=== PATIENT | male | born 1970 | race Caucasian/White ===

== ENCOUNTER 2020-08-22 12:24 | Emergency (ER) | payer OTHER, SELFPAY ==
[2020-08-22 12:45] VITALS: BP 108/68; PULSE 79; RESP 18; TEMP 36.6; O2SAT 96; BMI 34.1
--- NOTE | 2020-08-22 14:38 | CT_ITS ---
EXAMINATION: CT HEAD WITHOUT CONTRAST CLINICAL INFORMATION: Fall, secondary trauma. On warfarin. COMPARISON: None TECHNIQUE: Contiguous axial imaging was performed from the skull base to vertex without intravenous administration of contrast. Additional 2-D coronal and sagittal reformatted images are generated on the CT workstation and uploaded to PACS. Some images repeated due to motion on initial set. DOSE LOWERING TECHNIQUES: This CT examination was performed using dose optimization techniques as appropriate, variously including the following: *Automated exposure control *Adjustment of mA and/or kV according to patient size (this includes techniques or standardized protocols for targeted exams where dose is matched to indication/reason for exam; i.e. extremities or head) *Use of iterative reconstruction technique DLP: 2508 mGy-cm FINDINGS: There is some motion during the exam as well as streak artifact from head tilt. There are bulky bilateral basal ganglia calcifications and coarse calcifications in the bilateral cerebella nuclei. Fine calcifications are also present in the bilateral periventricular white matter. Findings are most likely related to nonspecific chronic metabolic disease. There is no subarachnoid, extra-axial, parenchymal, or intraventricular hemorrhage. No mass effect or edema or midline shift. The ventricles are normal in size. There is no hydrocephalus. The gonzalez-white matter differentiation appears symmetric. There is no visible acute territorial infarct or mass lesion. The calvarium appears intact. There is no pneumocephalus or orbital emphysema. There are no air-fluid levels in the sinuses. There is some mucosal thickening noted in the maxillary sinuses and opacification left mastoid air cells and left middle ear. No bony destructive process. CT/CT head/brain wo con IMPRESSION: 1. Bilateral coarse calcifications basal ganglia, cerebellar nuclei, and periventricular white matter likely related to nonspecific chronic metabolic disease. 2. No intracranial hemorrhage, hydrocephalus, edema, or mass effect. 3. Opacification left middle ear and left mastoid. No bony destructive process.
--- NOTE | 2020-08-22 14:40 | XR_ITS ---
EXAMINATION: XR CHEST CLINICAL INFORMATION: Reason for Exam fluid in lungs on last cxr 2 weeks ago, pt non verbal COMPARISON: Chest radiographs 07/23/2016, 03/11/2012. TECHNIQUE: Portable upright AP view of the chest was obtained. FINDINGS: Heart is upper limits of normal size. The vascularity is within normal. There is coarsening of the bronchiolar markings lower zones with possible airspace opacity right infrahilar region. The remainder of the lungs are clear. No effusion. XR/XR chest 1V IMPRESSION: Coarsening bronchiolar markings lower zones with possible airspace opacity right infrahilar region. Remainder of lungs are clear. No effusion.
--- NOTE | 2020-08-22 14:48 | ED_ITS ---
HPI - Fall General Chief Complaint: Fall Stated Complaint: FALL Time Seen by Provider: 08/22/20 13:49 Source: family and hand quilter ( sister speaks Swedish) Mode of arrival: wheelchair Limitations: other (ID) History of Present Illness HPI Narrative: patient is a 50-year-old male with a past medical history of Megan n Syndrome, history of DVT on warfarin and hypothyroid presents with his sister, Tabatha Rehman, who is his concrete wall grinder operator. Tabatha states that for the last few days he has been trying to hurt himself intentionally, throwing himself in different directions, towards objects, out of bed, multiple times. He states he did hit his head on a radiator. she states he typically does not act out like this when he has an infection and this is very unusual for him. she states he does not have a cough, shortness of breath, fevers, nausea vomiting diarrhea and has been eating his normal amounts. patient is apparently on some antipsychotic medication but the sister is unaware what it is and states that he is out of the medication. Related Data Home Medications Medication Instructions Recorded Confirmed levothyroxine 1 tab PO DAILY 08/22/20 08/22/20 warfarin 1 tab PO DAILY 08/22/20 08/22/20 Previous Rx's Medication Instructions Recorded nitrofurantoin monohyd/m-cryst 100 mg PO Q12H 5 Days #10 cap 08/22/20 [Macrobid] phenazopyridine [Pyridium] 200 mg PO TID #10 tab 08/22/20 Allergies Allergy/AdvReac Type Severity Reaction Status Date / Time No Known Allergies Allergy Unverified 07/18/20 16:25 Review of Systems Review of Systems: Yes all other systems are reviewed and are negative [facility] Past Medical History Attestation statement: The following information was validated with the patient. Source: old records reviewed and obtained from family Medical History DVT (deep venous thrombosis) Social History Social History Advance Directives: No Advance Directives Information Provided: No Physical Exam Vital Signs: Vital Signs: Vital Signs Temp Pulse Resp BP Pulse Ox 08/22/20 15:07 99.0 F 63 18 115/58 L 95 08/22/20 12:45 97.9 F 79 18 108/68 96 Body Mass Index 34.1 Const: General: cooperative and no acute distress Nutritional Appearance: obese Orientation/consciousness: Other orientation findings (baseline Down Syndrome per sister) Limitations: physical limitations Eyes: Eyelids: Yes eyelid abnormality (upward slanting/Downs) Conjunctivae: conjunctival abnormal (glaucoma left eye) Pupils: Equal, round and reactive pupils present Neck: Neck: Yes normal visual inspection, Yes full ROM and Yes other (no TTP of cervical spine) Chest: Chest palpation & inspection: normal palpation of entire chest wall Resp: Effort & Inspection: normal respiratory effort Auscultation: clear to auscultation bilaterally Cardio: Rate: regular rate Rhythm: regular rhythm Heart sounds: S1 normal heart sound present and S2 normal heart sound present GI: Inspection: Yes obesity and Yes other ( small, healing wounds on left lateral abdomen, right lateral sm ecchymosis) Palpation (GI): Soft to palpation, nontender and No hepatosplenomegaly present Auscultation: normal bowel sounds Skin: Trauma: other ( patient has multiple small healing wounds over bilateral lower extremities) Neuro: Cranial nerves: Yes Equal, round and reactive pupils present Course Course Course Narrative: patient is a 50-year-old male with a past medical history of Down syndrome, history of DVT on warfarin and a hypothyroid. He is here with his sister who states she is his concrete wall grinder operator and he has been acting out recently and throwing himself off the bed and into objects. she states that he had a chest x-ray at [facility] 2 weeks ago which showed fluid on the lungs . She says he threw himself into a radiator last night. We will do UA, EKG, labs, head CT and a chest x-ray Reevaluation(s) Reevaluation #1: UA +, sent Bactrim to pharmacy Time: 15:34 Reevaluation #2: CXR shows small PNA, spoke with patient's sister with hand quilter Time: 15:34 MDM - Fall Lab Data Attestation: I reviewed the patient's lab results. Lab results narrative: urine pos nitrite and WBC's Result diagrams: 08/22/20 15:19 08/22/20 15:19 Labs: Lab Results 10/22/20 10/22/20 10/22/20 Range/Units 15:19 15:19 15:19 WBC 4.7 L (4.8-10.8) X10*3/uL RBC 3.60 L (4.60-5.80) X10*6/uL Hgb 12.3 L (14.0-18.0) g/dl Hct 38.5 L (42-52) % MCV 106.9 H (80-98) fL MCH 34.2 H (27.0-33.0) pg MCHC 31.9 (31.0-36.0) g/dl RDW 13.8 (11.0-16.0) % Plt Count 237 (160-400) X10*3/uL MPV 9.7 (9.4-12.4) fL Immature Gran % (Auto) 0.6 H (0.0-0.4) % Neut % (Auto) 66.7 (45-73) % Lymph % (Auto) 21.5 (20-40) % [place] % (Auto) 7.3 (2-11) % Eos % (Auto) 3.0 (0-4) % Baso % (Auto) 0.9 (0-2) % Lymph # (Auto) 1.0 L (1.2-4.9) X10*3/uL [place] # (Auto) 0.3 (0.1-1.2) X10*3/uL Eos # (Auto) 0.1 (0.0-0.4) X10*3/uL Baso # (Auto) 0.0 (0.0-0.2) X10*3/uL Abs Immat Gran (auto) 0.03 (0.00-0.03) X10*3/uL Absolute Neuts (auto) 3.1 (2.0-8.3) X10*3/uL Absolute Nucleated RBC 0.000 (0.0-0.012) X10*3/uL Nucleated RBC % (auto) 0.0 (0.0-0.2) /100WBC PT 21.0 H (10.8-13.0) SEC INR 1.8 H (0.9-1.1) APTT 35.4 (24.1-38.0) SEC D-Dimer 389 NG/ML Sodium 144 (135-145) mmol/L Potassium 4.1 (3.3-5.1) mmol/l Chloride 109 H (96-108) mmol/L Carbon Dioxide 28 (22-29) mmol/L Anion Gap 11 L (12-20) BUN 14 (9-16) mg/dL Creatinine 0.89 (0.5-1.4) mg/dL Estim Creat Clear Calc 105.3 Estimated GFR > 60 Random Glucose 98 (60-115) mg/dL Calcium 8.3 L (8.4-10.2) mg/dL Total Bilirubin 0.4 (0.0-1.0) mg/dL AST 29 (5-37) U/L ALT 26 (0-40) U/L Alkaline Phosphatase 52 (39-117) U/L Total Protein 6.5 (6.5-8.0) g/dL Albumin 3.5 (3.5-5.0) g/dL 08/22/20 Range/Units 15:19 WBC (4.8-10.8) X10*3/uL RBC (4.60-5.80) X10*6/uL Hgb (14.0-18.0) g/dl Hct (42-52) % MCV (80-98) fL MCH (27.0-33.0) pg MCHC (31.0-36.0) g/dl RDW (11.0-16.0) % Plt Count (160-400) X10*3/uL MPV (9.4-12.4) fL Immature Gran % (Auto) (0.0-0.4) % Neut % (Auto) (45-73) % Lymph % (Auto) (20-40) % [place] % (Auto) (2-11) % Eos % (Auto) (0-4) % Baso % (Auto) (0-2) % Lymph # (Auto) (1.2-4.9) X10*3/uL [place] # (Auto) (0.1-1.2) X10*3/uL Eos # (Auto) (0.0-0.4) X10*3/uL Baso # (Auto) (0.0-0.2) X10*3/uL Abs Immat Gran (auto) (0.00-0.03) X10*3/uL Absolute Neuts (auto) (2.0-8.3) X10*3/uL Absolute Nucleated RBC (0.0-0.012) X10*3/uL Nucleated RBC % (auto) (0.0-0.2) /100WBC PT (10.8-13.0) SEC INR (0.9-1.1) APTT (24.1-38.0) SEC D-Dimer Cancelled NG/ML Sodium (135-145) mmol/L Potassium (3.3-5.1) mmol/l Chloride (96-108) mmol/L Carbon Dioxide (22-29) mmol/L Anion Gap (12-20) BUN (9-16) mg/dL Creatinine (0.5-1.4) mg/dL Estim Creat Clear Calc Estimated GFR Random Glucose (60-115) mg/dL Calcium (8.4-10.2) mg/dL Total Bilirubin (0.0-1.0) mg/dL AST (5-37) U/L ALT (0-40) U/L Alkaline Phosphatase (39-117) U/L Total Protein (6.5-8.0) g/dL Albumin (3.5-5.0) g/dL Imaging Data Chest x-ray: My impression: Reviewed with Dr. Cordon, as patient has no shortness of breath or upper respiratory symptoms, not a CAP. Radiologist's impression: Coarsening bronchiolar markings lower zones with possible airspace opacity right infrahilar region. Remainder of lungs are clear. No effusion. CT scan - head: Attestation: I personally reviewed and interpreted this imaging study as follows: My impression: reviewed with Dr Cordon as well, nothing acute and no infection Radiologist's impression: 1. Bilateral coarse calcifications basal gangli a, cerebellar nuclei, and periventricular white matter likely related to nonspecific chronic metabolic disease. 2. No intracranial hemorrhage, hydrocephalus, edema, or mass effect. 3. Opacification left middle ear and left mastoid. No bony destructive process. Discharge Plan Discharge Clinical Impression: Acute UTI (urinary tract infection) Patient Disposition: Home, Self-Care Instructions: Urinary Tract Infection in Men (ED) Prescriptions: New nitrofurantoin monohyd/m-cryst [Macrobid] 100 mg capsule 100 mg PO Q12H 5 Days Qty: 10 RF: 0 phenazopyridine [Pyridium] 100 mg tablet 200 mg PO TID Qty: 10 RF: 0 No Action levothyroxine 150 mcg tablet 1 tab PO DAILY RF: 0 warfarin 2 mg tablet 1 tab PO DAILY RF: 0
[2020-08-22 15:07] VITALS: BP 115/58; PULSE 63; RESP 18; TEMP 37.2; O2SAT 95
[2020-08-22 15:29] LABS: MANUAL DIFF FLAG NO
[2020-08-22 15:31] LABS: Basophils Percent Auto 0.9 % (0-2); Eosinophils Absolute Auto 0.1 X10*3/uL (0.0-0.4); Hematocrit 38.5 % (42-52); Hemoglobin 12.3 g/dl (14.0-18.0); Imm Gran Abs Auto 0.03 X10*3/uL (0.00-0.03); Imm Gran Pct Auto 0.6 % (0.0-0.4); Lymphocytes Percent Auto 21.5 % (20-40); Mean Corpuscular HGB Conc 31.9 g/dl (31.0-36.0); Mean Corpuscular Hemoglobin 34.2 pg (27.0-33.0); Mean Corpuscular Volume 106.9 fL (80-98); Mean Platelet Volume 9.7 fL (9.4-12.4); Monocytes Absolute Auto 0.3 X10*3/uL (0.1-1.2); Monocytes Percent Auto 7.3 % (2-11); Neutrophils Absolute Auto 3.1 X10*3/uL (2.0-8.3); Neutrophils Percent Auto 66.7 % (45-73); Platelet Count 237 X10*3/uL (160-400); Red Cell Distribution Width 13.8 % (11.0-16.0); White Blood Count 4.7 X10*3/uL (4.8-10.8)
[2020-08-22 15:41] LABS: INTERNATIONAL NORM RATIO 1.8 (0.9-1.1)
[2020-08-22 15:44] LABS: D Dimer 389 NG/ML; Partial Thromboplastin Time 35.4 SEC (24.1-38.0)
[2020-08-22 15:53] LABS: Alanine Aminotransferase 26 U/L (0-40); Albumin Level 3.5 g/dL (3.5-5.0); Alkaline Phosphatase 52 U/L (39-117); Anion Gap 11 (12-20); Aspartate Amino Transferase 29 U/L (5-37); Bilirubin Total 0.4 mg/dL (0.0-1.0); Blood Urea Nitrogen 14 mg/dL (9-16); Calcium 8.3 mg/dL (8.4-10.2); Carbon Dioxide 28 mmol/L (22-29); Chloride 109 mmol/L (96-108); Creatinine Clr Calc Pharmacy 105.3; Estimated Glomerular Filt Rate > 60; Glucose Random 98 mg/dL (60-115); Potassium 4.1 mmol/l (3.3-5.1); Sodium 144 mmol/L (135-145); Total Protein 6.5 g/dL (6.5-8.0)
[2020-08-22] MEDS: Phenazopyridine HCL 200 MG TABLET PO (16:15)
== END 2020-08-22 16:19 | disposition home or self-care (01) ==
PROVIDERS: Physician Assistant; Emergency Provider Emergency Medicine; PCP Internal Medicine
DX: S09.90XA Unspecified injury of head, initial encounter (principal); G44.309 Post-traumatic headache, unspecified, not intractable; N39.0 Urinary tract infection, site not specified; Q90.9 Down syndrome, unspecified; W05.0XXA Fall from non-moving wheelchair, initial encounter; Y93.9 Activity, unspecified; Y92.9 Unspecified place or not applicable; Z86.718 Personal history of other venous thrombosis and embolism; Z79.01 Long term (current) use of anticoagulants; Z79.899 Other long term (current) drug therapy
CPT/HCPCS: 36415; 70450; 71045; 80053; 85025; 85379; 85610; 85730; 99284

== ENCOUNTER 2020-08-29 11:18 | Emergency (ER) | payer OTHER, SELFPAY ==
[2020-08-29 11:22] VITALS: BP 122/82; PULSE 84; RESP 20; TEMP 37.3; O2SAT 95; BMI 34.7
--- NOTE | 2020-08-29 11:38 | PC.NURSE ---
pt here for increased aggressive behaviour at home, lives with sister. aggressive over past month, increased this week, sister seeks crisis treatment/behavioural stabilization here. seen here a few days ago. finished course of abx for uti yesterday, no curent urinary sxs. pt is non-verbal, non-ambulatory, able to stand and pivot with assistance. hx hypothyroidism self-harm , see triage. med rec completed. VS wnl. sister at bedside to advocate for pt.
[2020-08-29 12:00] VITALS: BP 107/60; PULSE 73; RESP 19; TEMP 36.8; O2SAT 94
--- NOTE | 2020-08-29 12:48 | ED_ITS ---
HPI - Psych General Chief Complaint: Psychiatric Symptoms Stated Complaint: psych eval Time Seen by Provider: 08/29/20 12:36 Source: family Mode of arrival: EMS Limitations: other ( down syndrome) History of Present Illness HPI Narrative: sister brings patient to the ED because he has been off his medications since the pandemic started and has been more aggressive, crying, hitting others, and hitting himself. Related Data Home Medications Medication Instructions Recorded Confirmed levothyroxine 1 tab PO DAILY 08/22/20 08/29/20 warfarin 2 tab PO DAILY 08/22/20 08/29/20 Banophen 25 mg PO BEDTIME PRN MDD 50 08/29/20 08/29/20 Allergies Allergy/AdvReac Type Severity Reaction Status Date / Time No Known Allergies Allergy Verified 08/29/20 11:28 Review of Systems Review of Systems: Review of systems obtained from sister. patient has Down syndrome. Constitutional: Constitutional: Reports as per HPI, Reports no additional constitutional complaints, Denies anorexia, Denies body ache(s), Denies chills and Denies daytime sleepiness Eyes: Eyes: Reports as per HPI and Reports no additional eye complaints ENT: Reports system reviewed and no additional complaints, except as documented and Reports as per HPI Cardiovascular: Cardiovascular: Reports as per HPI, Reports no additional cardiovascular complaints, Denies chest pain, Denies chest pain at rest, Denies chest pain with activity, Denies Epigastric Pain, Denies rapid heart rate, Denies dyspnea, Denies dyspnea on exertion, Denies orthopnea and Denies paroxysmal nocturnal dyspnea Respiratory: Respiratory: Reports as per HPI, Reports no additional respiratory complaints, Denies no additional respiratory complaints, Denies change in phlegm color, Denies chest congestion, Denies cough, Denies excessive phlegm production, Denies pain on inspiration, Denies pain with cough, Denies dyspnea and Denies dyspnea on exertion Gastrointestinal: Gastrointestinal: Reports as per HPI, Reports no additional gastrointestinal complaints, Denies abdominal pain, Denies belching, Denies melena, Denies bloating, Denies change in bowel habits, Denies tenesmus, Denies change in stool character, Denies constipation, Denies early satiety, Denies dyspepsia, Denies heartburn and Denies fecal incontinence Genitourinary: Genitourinary: Denies no additional male genitourinary comp laints, Denies as per HPI, Denies genital lesions, Denies dysuria, Denies flank pain, Denies nocturia, Denies painful ejaculations and Denies testicular mass Musculoskeletal: Musculoskeletal: Reports no additional musculoskeletal complaints and Reports as per HPI Neurologic: Reports system reviewed and no additional complaints, except as documented and Reports as per HPI Psychiatric: Psychiatric: Reports no additional psychiatric complaints, Reports as per HPI and Reports depression Comments: patient is more aggressive PMF Past Medical History Medical History DVT (deep venous thrombosis) Social History Social History Alcohol intake: never Smoking Status: Never smoker Smoked in Last 30 Days: No Use of substances other than those prescribed or required for medical reasons: No Advance Directives: No Advance Directives Information Provided: Yes Physical Exam Vital Signs: Vital Signs: Vital Signs Temp Pulse Resp BP Pulse Ox 08/29/20 15:37 98.9 F 75 17 102/56 L 98 08/29/20 12:00 98.3 F 73 19 107/60 94 08/29/20 11:22 99.2 F 84 20 122/82 95 Body Mass Index 34.7 Const: Other: Bruising only on the right biceps HENMT: Head: Yes normal to inspection and Yes No palpable skull fracture present Eyes: General: appearance normal, both eyes and all related structures Neck: Neck: Yes normal visual inspection and Yes full ROM Chest: Chest palpation & inspection: normal inspection of the chest, normal palpation of entire chest wall and no localized rib tenderness Resp: Effort & Inspection: normal respiratory effort and able to speak in complete sentences Cardio: Jugular venous distension: no JVD Heart sounds: S1 normal heart sound present and S2 normal heart sound present GI: Inspection: Yes normal to inspection Palpation (GI): Soft to palpation, not firm, nontender, no guarding and not rigid : General: No CVA tenderness and Yes no CVA tenderness Back/Spine/Pelvis: Back: no CVA tenderness, No CVA tenderness and No back tenderness Extrem: Other: Positive for right arm/bicep bruising. General: Yes normal to inspection and Yes full ROM Right upper extremity: normal to inspection Left upper extremity: normal to inspection Psych: Other: patient is at baseline mentally. Course Course Course Narrative: patient will be evaluated by [facility] leasing sales consultant. Reevaluation(s) Reevaluation #1: [facility] consulted spoke with sister to valarie flynn patient. [facility] consultant to recommend patient stay overnight so they can call his provider to determine what care he is receiving to see if he needs inpatient admission. presently [facility] consulted does not recommend patient go back home with sister. Patient will be re-evaluated tomorrow. Patient to have basic labs and UA ordered. Time: 16:46 Reevaluation #2: Case signed out to [employer] Nawaf. Will order PT/Ptt. Patient placed on one-to-one Time: 17:42 MDM - Psych MDM Narrative Medical decision making narrative: Down syndrome. Behavior issues. Restraints Face to Face Assessment: Face to Face Assessment: Current Situation: After assessment of the patient, a review of the pertinent medical record and a discussion with nursing staff, I feel the patient requires a restrain intervention. Reaction To: [] Medical Condition: [] Behavioral State: [] Continued Need: [] Lab Data Result diagrams: 08/29/20 16:42 08/29/20 16:42 Labs: Lab Results 08/29/20 08/29/20 08/29/20 Range/Units 16:27 16:27 16:42 WBC 5.2 (4.8-10.8) X10*3/uL RBC 3.29 L (4.60-5.80) X10*6/uL Hgb 11.3 L (14.0-18.0) g/dl Hct 36.3 L (42-52) % MCV 110.3 H (80-98) fL MCH 34.3 H (27.0-33.0) pg MCHC 31.1 (31.0-36.0) g/dl RDW 13.7 (11.0-16.0) % Plt Count 266 (160-400) X10*3/uL MPV 10.0 (9.4-12.4) fL Immature Gran % (Auto) 1.2 H (0.0-0.4) % Neut % (Auto) 54.9 (45-73) % Lymph % (Auto) 27.9 (20-40) % [place] % (Auto) 10.3 (2-11) % Eos % (Auto) 4.1 H (0-4) % Baso % (Auto) 1.6 (0-2) % Lymph # (Auto) 1.4 (1.2-4.9) X10*3/uL [place] # (Auto) 0.5 (0.1-1.2) X10*3/uL Eos # (Auto) 0.2 (0.0-0.4) X10*3/uL Baso # (Auto) 0.1 (0.0-0.2) X10*3/uL Abs Immat Gran (auto) 0.06 H (0.00-0.03) X10*3/uL Absolute Neuts (auto) 2.8 (2.0-8.3) X10*3/uL Absolute Nucleated RBC 0.000 (0.0-0.012) X10*3/uL Nucleated RBC % (auto) 0.0 (0.0-0.2) /100WBC Sodium (135-145) mmol/L Potassium (3.3-5.1) mmol/l Chloride (96-108) mmol/L Carbon Dioxide (22-29) mmol/L Anion Gap (12-20) BUN (9-16) mg/dL Creatinine (0.5-1.4) mg/dL Estim Creat Clear Calc Estimated GFR Random Glucose (60-115) mg/dL Calcium (8.4-10.2) mg/dL Total Bilirubin (0.0-1.0) mg/dL Direct Bilirubin (0.0-0.5) mg/dL AST (5-37) U/L ALT (0-40) U/L Alkaline Phosphatase (39-117) U/L Total Protein (6.5-8.0) g/dL Albumin (3.5-5.0) g/dL Urine Color YELLOW Urine Appearance CLEAR Urine pH 7.0 (5.0-8.0) Ur Specific [place] 1.020 (1.005-1.025) Urine Protein NEG (NEG-TRACE) MG/DL Urine Glucose (UA) NEG (NEG) MG/DL Urine Ketones NEG (NEG) MG/DL Urine Blood NEG (NEG) Urine Nitrite NEG (NEG) Ur Leukocyte Esterase NEG (NEG) Urine Opiates Screen Not Detected (Not Detect) Ur Barbiturates Screen Not Detected (Not Detect) Ur Phencyclidine Scrn Not Detected (Not Detect) Ur Amphetamines Screen Not Detected (Not Detect) U Benzodiazepines Scrn Not Detected (Not Detect) Urine Cocaine Screen Not Detected (Not Detect) U Marijuana (THC) Screen Not Detected (Not Detect) Ethyl Alcohol mg/dL 08/29/20 08/29/20 Range/Units 16:42 16:42 WBC (4.8-10.8) X10*3/uL RBC (4.60-5.80) X10*6/uL Hgb (14.0-18.0) g/dl Hct (42-52) % MCV (80-98) fL MCH (27.0-33.0) pg MCHC (31.0-36.0) g/dl RDW (11.0-16.0) % Plt Count (160-400) X10*3/uL MPV (9.4-12.4) fL Immature Gran % (Auto) (0.0-0.4) % Neut % (Auto) (45-73) % Lymph % (Auto) (20-40) % [place] % (Auto) (2-11) % Eos % (Auto) (0-4) % Baso % (Auto) (0-2) % Lymph # (Auto) (1.2-4.9) X10*3/uL [place] # (Auto) (0.1-1.2) X10*3/uL Eos # (Auto) (0.0-0.4) X10*3/uL Baso # (Auto) (0.0-0.2) X10*3/uL Abs Immat Gran (auto) (0.00-0.03) X10*3/uL Absolute Neuts (auto) (2.0-8.3) X10*3/uL Absolute Nucleated RBC (0.0-0.012) X10*3/uL Nucleated RBC % (auto) (0.0-0.2) /100WBC Sodium 143 (135-145) mmol/L Potassium 4.9 (3.3-5.1) mmol/l Chloride 107 (96-108) mmol/L Carbon Dioxide 31 H (22-29) mmol/L Anion Gap 10 L (12-20) BUN 19 H (9-16) mg/dL Creatinine 0.99 (0.5-1.4) mg/dL Estim Creat Clear Calc 83.0 Estimated GFR > 60 Random Glucose 97 (60-115) mg/dL Calcium 7.9 L (8.4-10.2) mg/dL Total Bilirubin 0.6 (0.0-1.0) mg/dL Direct Bilirubin 0.2 (0.0-0.5) mg/dL AST 18 (5-37) U/L ALT 22 (0-40) U/L Alkaline Phosphatase 52 (39-117) U/L Total Protein 6.0 L (6.5-8.0) g/dL Albumin 3.1 L (3.5-5.0) g/dL Urine Color Urine Appearance Urine pH (5.0-8.0) Ur Specific [place] (1.005-1.025) Urine Protein (NEG-TRACE) MG/DL Urine Glucose (UA) (NEG) MG/DL Urine Ketones (NEG) MG/DL Urine Blood (NEG) Urine Nitrite (NEG) Ur Leukocyte Esterase (NEG) Urine Opiates Screen (Not Detect) Ur Barbiturates Screen (Not Detect) Ur Phencyclidine Scrn (Not Detect) Ur Amphetamines Screen (Not Detect) U Benzodiazepines Scrn (Not Detect) Urine Cocaine Screen (Not Detect) U Marijuana (THC) Screen (Not Detect) Ethyl Alcohol < 10 mg/dL Discharge Plan Discharge Clinical Impression: Behavioral change Prescriptions: No Action levothyroxine 150 mcg tablet 1 tab PO DAILY RF: 0 warfarin 2 mg tablet 2 tab PO DAILY RF: 0 Banophen 25 mg 25 mg PO BEDTIME MDD 50 PRN (Reason: Sleep) RF: 0
[2020-08-29 15:37] VITALS: BP 102/56; PULSE 75; RESP 17; TEMP 37.2; O2SAT 98
[2020-08-29 16:47] LABS: MANUAL DIFF FLAG NO
[2020-08-29 16:50] LABS: Basophils Absolute Auto 0.1 X10*3/uL (0.0-0.2); Basophils Percent Auto 1.6 % (0-2); Hematocrit 36.3 % (42-52); Red Blood Count 3.29 X10*6/uL (4.60-5.80)
[2020-08-29 16:53] LABS: Glucose Urine UA NEG (NEG); Leukocyte Esterase Urine NEG (NEG); Nitrite Urine NEG (NEG); Urine Blood NEG (NEG); Urine Ketones NEG (NEG); Urine Protein NEG (NEG-TRACE)
[2020-08-29 16:54] LABS: Appearance Urine CLEAR; Color Urine YELLOW
[2020-08-29 16:58] LABS: Eosinophils Absolute Auto 0.2 X10*3/uL (0.0-0.4); Eosinophils Percent Auto 4.1 % (0-4); Hemoglobin 11.3 g/dl (14.0-18.0); Imm Gran Abs Auto 0.06 X10*3/uL (0.00-0.03); Imm Gran Pct Auto 1.2 % (0.0-0.4); Lymphocytes Absolute Auto 1.4 X10*3/uL (1.2-4.9); Lymphocytes Percent Auto 27.9 % (20-40); Mean Corpuscular HGB Conc 31.1 g/dl (31.0-36.0); Mean Corpuscular Hemoglobin 34.3 pg (27.0-33.0); Mean Corpuscular Volume 110.3 fL (80-98); Monocytes Absolute Auto 0.5 X10*3/uL (0.1-1.2); Monocytes Percent Auto 10.3 % (2-11); Neutrophils Absolute Auto 2.8 X10*3/uL (2.0-8.3); Neutrophils Percent Auto 54.9 % (45-73); Platelet Count 266 X10*3/uL (160-400); Red Cell Distribution Width 13.7 % (11.0-16.0); White Blood Count 5.2 X10*3/uL (4.8-10.8)
[2020-08-29 17:09] LABS: Ethanol < 10 mg/dL
[2020-08-29 17:14] LABS: Alanine Aminotransferase 22 U/L (0-40); Albumin Level 3.1 g/dL (3.5-5.0); Alkaline Phosphatase 52 U/L (39-117); Anion Gap 10 (12-20); Aspartate Amino Transferase 18 U/L (5-37); Bilirubin Direct 0.2 mg/dL (0.0-0.5); Bilirubin Total 0.6 mg/dL (0.0-1.0); Blood Urea Nitrogen 19 mg/dL (9-16); Calcium 7.9 mg/dL (8.4-10.2); Carbon Dioxide 31 mmol/L (22-29); Chloride 107 mmol/L (96-108); Estimated Glomerular Filt Rate > 60; Glucose Random 97 mg/dL (60-115); Potassium 4.9 mmol/l (3.3-5.1); Sodium 143 mmol/L (135-145)
[2020-08-29 17:23] LABS: Amphetamine Screen Urine Not Detected (Not Detect); Barbiturates, Urine Not Detected (Not Detect); Benzodiazepines Screen Urine Not Detected (Not Detect); Cannabinoid Screen Urine Not Detected (Not Detect); Cocaine Screen Urine Not Detected (Not Detect); Opiate Screen Urine Not Detected (Not Detect); Phencyclidine Screen Urine Not Detected (Not Detect)
--- NOTE | 2020-08-29 17:38 | PC.NURSE ---
mom had to leave home. patient placed on one to one.
[2020-08-29] MEDS: LORazepam 1 MG TABLET PO (19:16)
--- NOTE | 2020-08-29 19:41 | PC.NURSE ---
unable to draw labs due to patient's agitation
--- NOTE | 2020-08-29 20:49 | PC.NURSE ---
ASSUMED CARE OF PT FROM PREVIOUS NURSE. 1:1 REMAINS WITH PT.
--- NOTE | 2020-08-29 21:14 | PC.NURSE ---
patient has started to calm down. no further screaming at present
[2020-08-29] MEDS: Acetaminophen 325 MG TABLET 650 MG PO (22:40)
--- NOTE | 2020-08-29 22:50 | PC.NURSE ---
attempt to take labs unable. patient became agitated
[2020-08-30] VITALS (12 sets, daily range): BP systolic 90–136; BP diastolic 46–99; PULSE 66–119; RESP 14–22; TEMP 36.7; O2SAT 94–100
[2020-08-30] MEDS: diphenhydrAMINE HCL 25 MG TABLET PO (03:57)
[2020-08-30] MEDS: LORazepam 1 MG TABLET PO ×2 (03:57→17:28)
--- NOTE | 2020-08-30 04:07 | PC.NURSE ---
Patient in his bed, loud/screaming/agitated, Ativan 1 mg and Benadryl 25 mg administered with pudding as ordered, Will continue to monitor.
--- NOTE | 2020-08-30 07:27 | PC.NURSE ---
PT IS SLEEPING, REPORT RECEIVED FROM NIGHT STAFF CHART REFLECTS PLAN FOR N TO REASSESS PT TODAY PTS SISTER DOES NOT FEEL SAFE WITH PT RETURNING HOME
[2020-08-30] MEDS: Haloperidol Lactate 5 MG/ML VIAL IM (09:28)
--- NOTE | 2020-08-30 09:33 | PC.NURSE ---
pt awake and thrashing about the bed he is repetitive in his vocalization, screaming electric motor tester used and pt offers no insight to his needs at this time he was offered toileting, food( which was thrown on the floor) and reduced stimulation in room milli tuttle at the bedside to reassess and pt was medicated as charted for agitation sitter remains in place
--- NOTE | 2020-08-30 10:06 | PC.NURSE ---
PTS FAMILY AT THE BEDSIDE HE WAS ABLE TO DRINK WATER FOR THIS RN SISTER PRESENT AND PT TOOK A FEW BITES OF A BREAKFAST SANDWICH HIS DRESSING ON THE ABD WOUND WAS REPLACED AND HIS BRIEF WAS REMOVED AND HOSPITAL PANTS WERE PLACED ON THE PT
--- NOTE | 2020-08-30 10:40 | PC.NURSE ---
PT RESTING QUIETLY IN BED FAMILY HAS STEPPED OUT AND WILL RETURN
--- NOTE | 2020-08-30 11:06 | PC.NURSE ---
GAURANG AT BEDSIDE WTIH SISTER AND PT. PT CALM AT THIS TIME, PUTTING HIS HANDS OUT OCCASIONALLY IF TO REACH OUT TO SOMEONE. ORDER ENTERED FOR MED REC PER NILAM MIMS.
--- NOTE | 2020-08-30 12:38 | PC.NURSE ---
PT SLEEPING AT THIS TIME. SPO2 DOWN TO 87% WHILE DEEPLY ASLEEP, PLACED ON 2L O2.
--- NOTE | 2020-08-30 12:50 | PC.NURSE ---
PT IS AN INPATIENT BEDSEARCH DDU PER N
--- NOTE | 2020-08-30 13:25 | PC.NURSE ---
KIM PAREDES TO BE COMPLETED PSYCH CONSULT
--- NOTE | 2020-08-30 13:39 | PC.NURSE ---
PT CONTINUE TO SLEEP IN STRETCHER. LUNCH TRAY HAS ARRIVED, PT APPEARS TO HAVE BEEN FED BY HIS SISTER EARLIER THIS MORNING.
--- NOTE | 2020-08-30 15:41 | PC.NURSE ---
CALL MADE OUT TO PHARMACY FOR MEDS
--- NOTE | 2020-08-30 15:43 | P.CNPS_ITS ---
History of Present Illness Chief Complaint: psych eval Reason for Consult: Aggression Requesting physician: Zander Wyman Discussed with referring provider: Yes Sources of Information: chart reviewed and crisis/core team assessment reviewed Additional Sources of Information: collateral from sister and Tabatha green [facility] Narrative: Patient is a 50-year-old male with history Down syndrome. Presents to the ED for increasing aggression and agitation at home. Patient is nonverbal, so all clinical information obtained via chart review and discussion with clinical team and his sister who is also his caregiver. Patient had reportedly not been sleeping at home, hitting himself, throwing himself on the floor, having moments of anger and throwing things. Sister reports that the symptoms have been consistent for many years, but over the last several months have been worsening. Sister reports that patient use to live in [place] until about 9 years ago when he came to [place] to live with his sister once his mother . Sister reports that patient had been on psychiatric medications for many years, but she is unaware of what any of them were and states that many were ineffective. At baseline, she reports that patient is very quiet but in another world , she reports that he appears to be communicating with voices or hallucinations, and more recently these seem to be quite upsetting to him as she sees him start yelling. Past Psychiatric History: - no current psychiatric providers in place. Sister reports that there is a referral for provider open at [facility], but no appointment has been made - sister reports that he had several psychiatric hospitalizations in [place] Medical Evaluation Reviewed: Yes currently on warfarin Personal & Social History: requires [id number] care Lives with his sister Review of Systems Review of Systems Yes Unobtainable due to mental status Reports system reviewed and no additional complaints, except as documented and Reports as per HPI [facility] Medical History DVT (deep venous thrombosis) Diagnostics Vital Signs (24Hr): Vital Signs - 24 hr 08/30/20 08:00 08/30/20 09:28 08/30/20 09:43 Pulse Rate 119 H 115 H Respiratory Rate 14 22 H Blood Pressure Pulse Oximetry 08/30/20 09:58 08/30/20 10:05 08/30/20 10:13 Pulse Rate 110 H 99 101 H Respiratory Rate 20 20 18 Blood Pressure 136/99 H Pulse Oximetry 08/30/20 10:28 08/30/20 13:34 Pulse Rate 75 Respiratory Rate 18 Blood Pressure 91/46 L Pulse Oximetry 97 99 Body Mass Index 34.7 Labs Results: 08/29/20 16:42 08/29/20 16:42 Labs: Laboratory Results - last 48 hr 08/29/20 08/29/20 08/29/20 16:27 16:27 16:42 WBC 5.2 RBC 3.29 L Hgb 11.3 L Hct 36.3 L MCV 110.3 H MCH 34.3 H MCHC 31.1 RDW 13.7 Plt Count 266 MPV 10.0 Immature Gran % (Auto) 1.2 H Neut % (Auto) 54.9 Lymph % (Auto) 27.9 [facility] % (Auto) 10.3 Eos % (Auto) 4.1 H Baso % (Auto) 1.6 Lymph # (Auto) 1.4 [facility] # (Auto) 0.5 Eos # (Auto) 0.2 Baso # (Auto) 0.1 Abs Immat Gran (auto) 0.06 H Absolute Neuts (auto) 2.8 Absolute Nucleated RBC 0.000 Nucleated RBC % (auto) 0.0 Sodium Potassium Chloride Carbon Dioxide Anion Gap BUN Creatinine Estim Creat Clear Calc Estimated GFR Random Glucose Calcium Total Bilirubin Direct Bilirubin AST ALT Alkaline Phosphatase Total Protein Albumin Urine Color YELLOW Urine Appearance CLEAR Urine pH 7.0 Ur Specific [place] 1.020 Urine Protein NEG Urine Glucose (UA) NEG Urine Ketones NEG Urine Blood NEG Urine Nitrite NEG Ur Leukocyte Esterase NEG Urine Opiates Screen Not Detected Ur Barbiturates Screen Not Detected Ur Phencyclidine Scrn Not Detected Ur Amphetamines Screen Not Detected U Benzodiazepines Scrn Not Detected Urine Cocaine Screen Not Detected U Marijuana (THC) Screen Not Detected Ethyl Alcohol 08/29/20 08/29/20 16:42 16:42 WBC RBC Hgb Hct MCV MCH MCHC RDW Plt Count MPV Immature Gran % (Auto) Neut % (Auto) Lymph % (Auto) [facility] % (Auto) Eos % (Auto) Baso % (Auto) Lymph # (Auto) [facility] # (Auto) Eos # (Auto) Baso # (Auto) Abs Immat Gran (auto) Absolute Neuts (auto) Absolute Nucleated RBC Nucleated RBC % (auto) Sodium 143 Potassium 4.9 Chloride 107 Carbon Dioxide 31 H Anion Gap 10 L BUN 19 H Creatinine 0.99 Estim Creat Clear Calc 83.0 Estimated GFR > 60 Random Glucose 97 Calcium 7.9 L Total Bilirubin 0.6 Direct Bilirubin 0.2 AST 18 ALT 22 Alkaline Phosphatase 52 Total Protein 6.0 L Albumin 3.1 L Urine Color Urine Appearance Urine pH Ur Specific [place] Urine Protein Urine Glucose (UA) Urine Ketones Urine Blood Urine Nitrite Ur Leukocyte Esterase Urine Opiates Screen Ur Barbiturates Screen Ur Phencyclidine Scrn Ur Amphetamines Screen U Benzodiazepines Scrn Urine Cocaine Screen U Marijuana (THC) Screen Ethyl Alcohol < 10 Mental Status Exam Mental Status Exam Level of Consciousness: Sedated Patient Behavior: Asleep Medications Medications Current Medications Generic Name Dose Route Start Last Admin Trade Name Freq PRN Reason Stop Dose Admin Acetaminophen 325 mg 08/30/20 14:25 Acetaminophen 325 Mg Tablet PO Q8H PRN Pain Levothyroxine Sodium 150 mcg 08/30/20 14:30 Levothyroxine Sodium 150 Mcg Tablet PO DAILY NELSON Non-Formulary Medication 25 mg 08/30/20 14:25 Banophen PO BEDTIME PRN Sleep Olanzapine 5 mg 08/30/20 21:00 Olanzapine 5 Mg Tablet PO BEDTIME NELSON Olanzapine 2.5 mg 08/30/20 15:28 Olanzapine 2.5 Mg Tablet PO TID PRN anxiety/restlessness Oxcarbazepine 300 mg 08/30/20 21:00 Oxcarbazepine 300 Mg Tablet PO BEDTIME [facility] Pharmacy Consult 1 each 08/30/20 07:16 Consult Rx Perform Med Rec MISCELLANE ONCE PRN Consult order Warfarin Sodium 4 mg 08/30/20 14:30 Warfarin Sodium 2 Mg Tablet PO DAILY [facility] Allergies Allergies Allergy/AdvReac Type Severity Reaction Status Date / Time No Known Allergies Allergy Verified 08/29/20 11:28 Assessment & Plan Assessment & Plan (1) Intellectual disability: Status: Acute Code(s): F79 - Unspecified intellectual disabilities Recommendations: * Scheduled Olanzapine to address reported aggression and psychotic behaviors * Scheduled Trileptal to address aggression and mood lability * PRN Olanzapine and Lorazepam if necessary * Monitor for hypotension and hyponatremia with Trileptal * Monitor for oversedation * Sister aware that medications will be started in ED and agreeable (2) Aggression: Status: Acute Code(s): R46.89 - Other symptoms and signs involving appearance and behavior Greater than 50% of the session was spent on counseling and/or coordination of care
[2020-08-30 16:16] LABS: INTERNATIONAL NORM RATIO 1.7 (0.9-1.1); Prothrombin Time 20.1 SEC (10.8-13.0)
[2020-08-30] MEDS: Levothyroxine Sodium 150 MCG TABLET PO (17:27)
[2020-08-30] MEDS: OLANZapine 2.5 MG TABLET PO (17:28)
[2020-08-30] MEDS: OLANZapine 5 MG TABLET PO (21:12)
[2020-08-30] MEDS: OXcarbazepine 300 MG TABLET PO (21:12)
--- NOTE | 2020-08-30 23:05 | PC.NURSE ---
PT RECEIVED FIRST DOSES ANTIPSYCHOTIC MEDICATION THIS EVENING. LESS AGITATED THAN PREVIOUSLY WITNESSED. LINENS CHANGED MULTIPLE TIMES. SITTER AT BEDSIDE THROUGHOUT THE DAY. SISTER ARRIVED AND FED PT, AWARE OF PLAN FOR INPATIENT BED SEARCH.
[2020-08-31] VITALS (10 sets, daily range): BP systolic 105–120; BP diastolic 58–71; PULSE 16–89; RESP 14–20; TEMP 36.5–37.2; O2SAT 94–98
--- NOTE | 2020-08-31 08:14 | PC.NURSE ---
pt is resting with unlabored breathing. bhn here to assess patient
[2020-08-31] MEDS: LORazepam 1 MG TABLET PO (08:34)
--- NOTE | 2020-08-31 08:38 | PC.NURSE ---
pt repositioned, currently yelling out. ativan given
--- NOTE | 2020-08-31 09:44 | PC.NURSE ---
pt is calm at this time, resting on stretcher needs being met.
[2020-08-31] MEDS: Levothyroxine Sodium 150 MCG TABLET PO (10:31)
--- NOTE | 2020-08-31 10:46 | PC.NURSE ---
pt sister at bedside
--- NOTE | 2020-08-31 11:17 | PC.NURSE ---
bhn bed search
--- NOTE | 2020-08-31 18:44 | PC.NURSE ---
PT INTERMITTENTLY AGITATED THROUGHOUT AFTERNOON, YELLING OUT. PT REQUESTED URINAL, VOIDED 1L, ATE 75% OF DINNER TRAY W/OUT DIFFICULTY. PT'S LINENS CLEANED, PT CLEANED HEAD TO TOE, IN NAD ATT.
[2020-08-31] MEDS: OLANZapine 5 MG TABLET PO (21:18)
[2020-08-31] MEDS: OXcarbazepine 300 MG TABLET PO (21:18)
[2020-09-01] VITALS (8 sets, daily range): BP systolic 101–116; BP diastolic 52–58; PULSE 55–81; RESP 16–20; O2SAT 18–97
--- NOTE | 2020-09-01 00:20 | PC.NURSE ---
Pt restless, difficulty expressing needs or wants. Associate Engineer at bedside. Pt cleaned, powder applied, up to recliner, given po fluids, much more comfortable looking. pt requires 2 assist with transfer. Pt bed changed to hospital bed.
--- NOTE | 2020-09-01 01:42 | PC.NURSE ---
Pt became agitated, yelling out in chair, assisted back to bed, given water, now resting with eyes closed. sitter at bedside.
--- NOTE | 2020-09-01 07:00 | PC.NURSE ---
PT HAD A LARGE BM AND WAS INCONTINENT OF LARGE AMOUNT OF URINE
[2020-09-01] MEDS: OLANZapine 2.5 MG TABLET PO (07:14)
--- NOTE | 2020-09-01 07:24 | PC.NURSE ---
patient agitated. patient moved to recliner, is stand and pivot only. given breakfast. being fed 1 to 1.
--- NOTE | 2020-09-01 07:56 | PC.NURSE ---
patient ate entire breakfast tray. helped back to bed.
[2020-09-01] MEDS: Levothyroxine Sodium 150 MCG TABLET PO (10:31)
[2020-09-01 11:20] LABS: INTERNATIONAL NORM RATIO 1.4 (0.9-1.1); Prothrombin Time 16.2 SEC (10.8-13.0)
[2020-09-01] MEDS: LORazepam 1 MG TABLET PO (14:20)
--- NOTE | 2020-09-01 21:04 | PC.NURSE ---
09/01/2020 at 2030 patient restless, yelling. patient incontinent of urine, care provided and linens changed.
--- NOTE | 2020-09-01 21:06 | PC.NURSE ---
09/01/2020 at 1930 patient yelling out, restless, moving around on stretcher. this RN provided support to patient and repostioned patient w/ outboard technician. patient then resting
--- NOTE | 2020-09-01 22:23 | PC.NURSE ---
Patient sleeping. resp even and non labored. appears comfortable
--- NOTE | 2020-09-01 22:38 | PC.NURSE ---
09/01/2020 at 2018 this RN attempted to medicate patient with evening meds, patient refused, yelling NO and closing eyes.
--- NOTE | 2020-09-01 23:02 | PC.NURSE ---
Patient continues to sleep. This RN reapproached patient in attempt to medicate w/ evening meds. pt awoken to verbal stimuli and swung arm at nurse and rolled back over to sleep. skin pwd. resp even and non labored.
[2020-09-02] VITALS (12 sets, daily range): BP systolic 91–120; BP diastolic 40–72; PULSE 61–83; RESP 16–20; TEMP 36.6–36.9; O2SAT 94–98
--- NOTE | 2020-09-02 00:22 | PC.NURSE ---
Patient continues to sleep at this time. Respirations even & unlabored. Sitter remains at bedside. No acute distress noted.
--- NOTE | 2020-09-02 01:15 | PC.NURSE ---
Patient continues to sleep at this time. No changes noted compared to previous interaction. Sitter remains at bedside. Will continue to monitor.
--- NOTE | 2020-09-02 02:24 | PC.NURSE ---
Patient requested and given water (2 cups, with straw), pudding cup, and ham sandwich. Pt noted to be incontinent of urine in bedsheets. Linens changed. Pericare/Personal hygiene performed by this RN and ABEL [place]. Pt remains calm/cooperative, speaking Luxembourger. Vital signs stable. Respirations even & unlabored. Pt able to make needs known at this time, denies pain, and will continue to monitor. Call dove within reach, asking to go back to sleep. Lights dimmed, clean warm blanket given.
--- NOTE | 2020-09-02 05:48 | PC.NURSE ---
Patient refusing BP measurement at this time. Other vital signs obtained without issue, as documented in MAR. Patient is not combative or aggressive at this time, occasionally laughing or talking out loud to self. This RN unable to determine what patient is saying to himself due to mumbling, however, when prompted, patient is able to make needs known. Pt requested coffee from [facility]. No apparent distress noted. Linens changed for patient comfort. Call dove within reach. Head of bed repositioned for comfort, lights remain dimmed. Sitter remains at bedside. Will continue to monitor and repeat vital signs at a later time.
--- NOTE | 2020-09-02 07:15 | PC.NURSE ---
PT IS ALERT, NO SOB/ATA NOTED SKIN PINK WARM DRY. PT ATE 100% OF BREAKFAST. PT MAKES HIS OCCASSIONAL VERBAL OUTBURSTS, PT IS IN BED, REFUSES TO KEEP HIS HOSP GARMENT ON. NO APPARENT DISTRESS NOTED.
[2020-09-02] MEDS: Acetaminophen 325 MG TABLET PO (09:03)
[2020-09-02] MEDS: Levothyroxine Sodium 150 MCG TABLET PO (09:03)
[2020-09-02] MEDS: OLANZapine 2.5 MG TABLET PO ×2 (09:04→17:04)
--- NOTE | 2020-09-02 09:14 | PC.NURSE ---
PT IS MOANING NO DEFINITE INDICATION OF WHERE HIS PAIN IS PT IS MED X 1 WITH TYLENOL 325MG PO, SLIGHTLY RESTLESS MED X 1 WITH ZYPREXA 2.5MG PO IN PUDDING FOLLOWED BY WATER WHICH PT TOLERATED VERY WELL.
--- NOTE | 2020-09-02 11:10 | PC.NURSE ---
AKSHAT ([facility]) RETURNED THIS RN CALLED. AKSHAT STATES THAT BED SEARCH IS IN EFFECT FOR PT AND THAT [facility] IS BEING CONSIDERED.
--- NOTE | 2020-09-02 13:30 | PC.NURSE ---
pt ate 100% of lunch.
--- NOTE | 2020-09-02 14:08 | PC.NURSE ---
ED TRANSFER SUMMARY FAXED TO AKSHAT ([facility]) AT [phone].
[2020-09-02 15:55] LABS: SARS COV2 PCR INHOUSE NEGATIVE (Negative)
[2020-09-02] MEDS: Warfarin Sodium 4 MG TABLET PO (17:55)
--- NOTE | 2020-09-02 17:56 | PC.NURSE ---
PRN Zyprexa given at 1700 for increased agitation. Linens changed and pt cleaned. coumadin given as ordered, per Samina DEMARCO okay to use PT/INR from yesterday as level was subtherapeutic.
--- NOTE | 2020-09-02 18:43 | PC.NURSE ---
Family in, fed pt. Pt back to bed at this time. Pt observer for safety
[2020-09-02] MEDS: OXcarbazepine 300 MG TABLET PO ×2 (20:49→21:50)
[2020-09-02] MEDS: OLANZapine 5 MG TABLET PO ×2 (20:50)
--- NOTE | 2020-09-02 23:24 | PC.NURSE ---
TRAVISN called for update of bed search status. [facility] will be reviewed pt's info in the AM. Pt has not been accepted to [facility] at this time.
[2020-09-03] VITALS (9 sets, daily range): BP systolic 96–140; BP diastolic 61–108; PULSE 77–94; RESP 16–22; TEMP 36.4–36.6; O2SAT 95–99
[2020-09-03] MEDS: diphenhydrAMINE HCL 25 MG TABLET PO (00:01)
[2020-09-03] MEDS: LORazepam 1 MG TABLET PO ×3 (00:01→17:10)
[2020-09-03] MEDS: Levothyroxine Sodium 150 MCG TABLET PO (06:29)
--- NOTE | 2020-09-03 07:12 | PC.NURSE ---
REPORT TAKEN FROM JULIANNA AU. PT SLEEPING AT THIS TIME. NO DISTRESS.
--- NOTE | 2020-09-03 09:43 | PC.NURSE ---
spoke with PHP CONSULTANT regarding INR lab draw order, stated to draw today and then does not need daily lab draw. will draw lab when pt awake.
[2020-09-03] MEDS: Acetaminophen 325 MG TABLET PO (11:05)
--- NOTE | 2020-09-03 18:02 | PC.NURSE ---
ORDER FOR PT TO HAVE INR DRAWN. PT ON COUMADIN DAILY. ATTEMPTED 3X TO DRAW WITH TECH RENE, UNABLE TO OBTAIN BLOOD SAMPLE, PT MOVING/HARD STICK. CALL TO LAB, UNABLE TO USE FINGER STICK FOR INR. SPOKE WITH DHRUV LIPSCOMB AND MADE AWARE OF ABOVE. STATED OK TO NOT GET INR LEVEL FOR NOW. PHARMACY TO BRING MED. FAMILY AT BEDSIDE FEEDING PATIENT.
[2020-09-03] MEDS: Warfarin Sodium 4 MG TABLET PO (19:01)
[2020-09-03 19:04] LABS: INTERNATIONAL NORM RATIO 1.1 (0.9-1.1); Prothrombin Time 12.6 SEC (10.8-13.0)
--- NOTE | 2020-09-03 20:47 | PC.NURSE ---
bladder scan showed aprox 400 ml urine, pt assisted to bedside commode and was able to void aprox 350 cc's.
[2020-09-03] MEDS: OXcarbazepine 300 MG TABLET PO (22:23)
[2020-09-03] MEDS: OLANZapine 5 MG TABLET PO (22:23)
--- NOTE | 2020-09-03 22:28 | PC.NURSE ---
PT TOOK NIGHT MEDICATIONS WELL, PT ASSISTED WITH URINAL. WILL ASK MD SAUCEDA IN A PT CONSULT. PT NOT AMBULATORY AND HAS DISCOLORATION TO LOWER EXTREMITIES.
--- NOTE | 2020-09-03 22:47 | PC.NURSE ---
straight cath, 600ml urine. sample sent. hx uti's.
[2020-09-03 22:55] LABS: Glucose Urine UA NEG (NEG); Leukocyte Esterase Urine NEG (NEG); Nitrite Urine NEG (NEG); PH 6.5 (5.0-8.0); Urine Blood TRACE (NEG); Urine Ketones NEG (NEG); Urine Protein NEG (NEG-TRACE)
[2020-09-03 22:57] LABS: Appearance Urine CLEAR; Color Urine YELLOW
[2020-09-03 23:03] LABS: Mucus Urine TRACE /LPF; RBC Urine 0-2 /HPF (0); Squamous Epithelial Cell Urine TRACE /LPF; WBC Urine 0 /HPF (0-4)
[2020-09-04] VITALS (8 sets, daily range): BP systolic 105–132; BP diastolic 54–69; PULSE 61–87; RESP 15–18; TEMP 35.6–36.4; O2SAT 95–100
[2020-09-04] MEDS: LORazepam 1 MG TABLET PO ×3 (00:08→23:45)
--- NOTE | 2020-09-04 02:06 | PC.NURSE ---
pt trying to slide out of bed, assisted to bedside commode. pt able to void without difficulty.
--- NOTE | 2020-09-04 08:02 | PC.NURSE ---
PT SLEEPING AT SHIFT CHANGE, REPORT WAS PT FELL ASLEEP AROUND 0515 THIS AM
--- NOTE | 2020-09-04 09:53 | PC.NURSE ---
CONTINUES TO SLEEP RESP ARE EQUAL AND NON LABORED
[2020-09-04] MEDS: OLANZapine 2.5 MG TABLET PO ×3 (10:51→23:49)
--- NOTE | 2020-09-04 11:13 | PC.NURSE ---
pt awake and yelling and thrashing in bed he was medicated and then ate approx 50% of his breakfast
[2020-09-04] MEDS: Levothyroxine Sodium 150 MCG TABLET PO (11:55)
--- NOTE | 2020-09-04 13:33 | PC.NURSE ---
SISTER PRESENT BHN AT BEDSIDE WELL PT EATING LUNCH
--- NOTE | 2020-09-04 14:02 | PC.NURSE ---
pt was reassessed by menan with sister present plan is for bhn to resolve their search and to get case manangement involved with dds placement for ltc
--- NOTE | 2020-09-04 14:47 | MHC.CM.ED ---
Patient has been in ER since 08/29. He was cleared by N today. Sister has been discussing LTC with DDS. Referrals broadcasted in [employer]. Continue to monitor for d/c needs.
--- NOTE | 2020-09-04 16:25 | PC.NURSE ---
SLEEPING IN NAPS
--- NOTE | 2020-09-04 17:48 | PC.NURSE ---
pt was incontinent of urine pt was cleaned and bed linens were changed he is tolerating po fluids when offered
[2020-09-04] MEDS: Warfarin Sodium 4 MG TABLET PO (18:20)
--- NOTE | 2020-09-04 18:42 | PC.NURSE ---
pt eating dinner occasional verbal outburts redirectable
--- NOTE | 2020-09-04 21:31 | PC.NURSE ---
PATIENT WAS INC OF URINE TIMES 1 ON MY SHIFT LARGE AMOUNT .
--- NOTE | 2020-09-04 22:01 | PC.NURSE ---
PATIENT HAD A CHOCOLATE PUDDING AND 240 CC WATER FOR SNACK .
--- NOTE | 2020-09-04 23:25 | PC.NURSE ---
REPORT TAKEN FROM HERNANDO RN, FIRST CONTACT WITH PT. RESTLESS IN BED, NOTED TO BE INCONTINENT OF URINE- HOSPITAL GOWN AND BEDDING CHANGED. WARM BLANKET GIVEN. PT SETTLED. PENDING N BED AT [facility]. PT OBSERVER AT BEDSIDE FOR SAFETY.
--- NOTE | 2020-09-04 23:50 | PC.NURSE ---
PT REMAINS RESTLESS, MEDICATED WITH PRNS PER MAR. GIVEN SNACK AND PO FLUIDS. AWAITING IMPROVEMENT IN SYMPTOMS. PO REMAINS AT BEDSIDE FOR SAFETY.
[2020-09-05] VITALS (10 sets, daily range): BP systolic 109–119; BP diastolic 55–65; PULSE 71–72; RESP 16–18; TEMP 36.3; O2SAT 99
--- NOTE | 2020-09-05 00:26 | PC.NURSE ---
RESTLESSNESS IMPROVED WILL CONTINUE TO MONITOR.
--- NOTE | 2020-09-05 01:06 | PC.NURSE ---
PT AGAIN INCONTINENT OF LARGE AMOUNT OF URINE, CLOTHING AND BEDDING CHANGED, WARM BLANKETS PROVIDED, PT REPOSITIONED FOR COMFORT. PO AT BEDSIDE FOR SAFETY.
--- NOTE | 2020-09-05 02:33 | PC.NURSE ---
PT RESTING IN BED EYES CLOSED, SKIN PWD RESPIRATIONS EVEN UNLABORED. PO AT BEDSIDE FOR SAFETY.
--- NOTE | 2020-09-05 06:00 | PC.NURSE ---
PT RESTING IN BED NO DISTRESS NOTED. SKIN PWD RESPIRATIONS EVEN UNLABORED. PO AT BEDSIDE FOR SAFETY.
[2020-09-05] MEDS: Levothyroxine Sodium 150 MCG TABLET PO (06:40)
--- NOTE | 2020-09-05 07:17 | PC.NURSE ---
report taken from marvin siu. pt no longer a bedsearch from [facility]. cleared by [facility]. awaiting snf placement from this am. pt sleeping at this time. resp even and unlabored.
[2020-09-05 09:27] LABS: INTERNATIONAL NORM RATIO 1.1 (0.9-1.1)
--- NOTE | 2020-09-05 10:13 | PC.NURSE ---
plan to obtain guardianship, cm states it is probably a 3 week process before able to [address] pt in a snf.
--- NOTE | 2020-09-05 10:13 | MHC.CM.ED ---
Copy of GAURANG vincent obtained from Care Team. Patient has been cared for by his sister Tabatha for about 6 years now. He came from [place] after his mother . He has no HCP or guardian. After speak with Kinjal, Case Management operational senior clinical data manager, [employer] office has been contacted to start guardianship process. Intake form completed and faxed. Facility broadcast has been extended to 25 miles. Continue to monitor for d/c needs.
--- NOTE | 2020-09-05 12:04 | PC.NURSE ---
pt sleeping at this time, resp even and unlabored. no incontinence noted.
[2020-09-05] MEDS: OLANZapine 2.5 MG TABLET PO (14:02)
--- NOTE | 2020-09-05 14:09 | PC.NURSE ---
linen changed again. pt cleaned up and placed in new hospital clothing. pt refusing lunch. screaming and rolling around bed, throwing water. pt given po prn, pt finished the rest of the custard and asked to go to sleep. resp even and unlabored.
--- NOTE | 2020-09-05 15:03 | PC.NURSE ---
pt continues to sleep at this time. resp even and unlabored. good effect from zyprexa.
--- NOTE | 2020-09-05 15:09 | MHC.CM.ED ---
Spoke with [employer]. Medical Certificate and [place] Order application completed and signed by Dr Cordon. Faxed to [employer]. Continue to monitor for d/c needs.
[2020-09-05] MEDS: LORazepam 1 MG TABLET PO (15:48)
--- NOTE | 2020-09-05 15:52 | PC.NURSE ---
PT TRYING TO CRAWL OUT OF BED, SCREAMING, NOT REDIRECTABLE. FLOAT OPERATOR AT BEDSIDE. PT GIVEN PO ATIVAN
--- NOTE | 2020-09-05 16:25 | PC.NURSE ---
prn was effective. pt sleeping. resp even and unlabored.
--- NOTE | 2020-09-05 17:07 | PC.NURSE ---
sitter stopped in for 10 min. pt sleeping so sister left. left food at bedside.
[2020-09-05] MEDS: OLANZapine 5 MG TABLET PO (23:48)
[2020-09-05] MEDS: OXcarbazepine 300 MG TABLET PO (23:49)
--- NOTE | 2020-09-05 23:53 | PC.NURSE ---
patient medicated per emar late as i just took over this assignment. patient took medication without incident.
[2020-09-06] VITALS: RESP 15
[2020-09-06 02:00] VITALS: RESP 15
[2020-09-06 04:00] VITALS: RESP 14
[2020-09-06 06:00] VITALS: BP 112/61; PULSE 71; RESP 15; O2SAT 98
[2020-09-06 08:00] VITALS: BP 109/48; PULSE 80; RESP 18; O2SAT 100
[2020-09-06] MEDS: LORazepam 1 MG TABLET PO (09:01)
[2020-09-06] MEDS: OLANZapine 2.5 MG TABLET PO (09:01)
[2020-09-06] MEDS: Levothyroxine Sodium 150 MCG TABLET PO (09:01)
--- NOTE | 2020-09-06 09:06 | PC.NURSE ---
following breakfast, pt appears to be getting agitated while in bed. screaming out, labile movements w arms. pt given prn medications as well as scheduled levothyroxine. tolerating po w/o issue.
--- NOTE | 2020-09-06 10:30 | PC.NURSE ---
this rn checking on pt following prn medications. pt appears to be conversing w self in french, appear more calm than earlier in shift. pt not shouting or moaning loudly. wctm. 1:[address] for safety.
--- NOTE | 2020-09-06 10:40 | MHC.CM.ED ---
Spoke with Kinza at [facility]. They will not authorize inpatient level of care while patient waits for guardianship. Continue to monitor for d/c needs.
--- NOTE | 2020-09-06 11:36 | MHC.CM.PN ---
This telegraphic typewriter mechanic spoke with Praveena Alvarez @ [facility], they will auth inpatient stay for pt. Our UR RN will send appropriate clinicals as requested. Senior Leadership aware and Chief Hospitalist.
[2020-09-06 12:02] LABS: INR Whole Blood 1.1 (0.9-1.1); Prothrombin Time Whole Blood 13.5 sec (11.1-13.5)
--- NOTE | 2020-09-06 12:24 | MHC.CM.ED ---
Spoke with patient's sister, Tabatha via telephone at [phone] with telephone kaiako kohanga reo. Tabatha states she obtained guardianship in [place] for her brother. Tabatha also states she is willing to take her brother home. T/w verified that she will be able to care for her brother. Tabatha states she will need some night help. T/W explained this could be arranged by [facility] but could take a couple of weeks for them to arrange. Tabatha verbalized understanding and is requesting ambulance transport home. [facility] booked for 1pm. Med nec with chart. Jeremy DEMARCO and Ben AU aware. Continue to monitor for d/c needs.
--- NOTE | 2020-09-06 15:06 | MHC.CM.ED ---
Received telephone call from patient's sister Tabatha. She was not given any prescriptions for her brother. [facility] is listed as his preferred pharmacy. Patient was started on Ativan and Zyprexa in the ER. Jeremy Limon has been asked to provide these prescriptions for patient to [facility] [address].
== END 2020-09-06 14:26 | disposition home or self-care (01) ==
PROVIDERS: Nurse Practitioner Family; Physician Assistant; Emergency Provider Internal Medicine; PCP Internal Medicine
DX: F91.8 Other conduct disorders (principal); Z79.899 Other long term (current) drug therapy; Z79.01 Long term (current) use of anticoagulants; Z86.718 Personal history of other venous thrombosis and embolism; Z20.828 Contact with and (suspected) exposure to other viral communicable diseases
CPT/HCPCS: 36415; 80053; 80076; 80307; 80320; 81001; 81003; 82248; 85025; 85610; 99283; 99285; Q0163; U0003